=== PATIENT | female | born 1990 | race Caucasian/White ===

== ENCOUNTER 2017-06-22 06:38 | Inpatient (IN) | payer OTHER, BC ==
[2017-06-22] MEDS ORDERED: Sodium Chloride 0.9% 10 ML Syringe FLUSH PRN (19:04)
[2017-06-22] MEDS ORDERED: Nalbuphine 20 MG/1 ML Amp IVPUSH PRN (19:04)
[2017-06-22] MEDS ORDERED: Zolpidem 5 MG Tab PO PRN (19:04)
[2017-06-22] MEDS ORDERED: Acetaminophen 325 MG Tab PO PRN (19:04)
[2017-06-22] MEDS ORDERED: Ondansetron 4 MG/2 ML SDV IVPUSH PRN (19:04)
--- NOTE | 2017-06-22 19:12 | PCM.LDHP ---
L&D History of Present Illness - General Date of Service: 06/22/17 Admit Problem/Dx: Patient Status Order with Admit Dx/Problem 06/22/17 19:04 Patient Status [ADT] Routine Admission Diagnosis/Problem Admission Diagnosis/Problem Normal in third trimester Source of Information: Patient History Limitations: Reports: No Limitations - History of Present Illness Introduction:: Patient is a 26 y/o at 40 3/7 wks who presents for IOL. Doing well today. No significant contractions. No LOF. Notes good FM. No other issues. Denies headaches, vision changes, and RUQ pain. 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 Para: 0 LMP (Approximate): - Past Surgical History GI Surgical History: Reports: Hernia, Inguinal Social & Family History - Tobacco Use Smoking Status *Q: Former Smoker - Alcohol Use Alcohol Use History: No - Recreational Drug Use Recreational Drug Use: No H&P Review of Systems - Review of Systems: Review Of Systems: See Below General: Reports: No Symptoms Pulmonary: Reports: No Symptoms Cardiovascular: Reports: No Symptoms Gastrointestinal: Reports: No Symptoms Genitourinary: Reports: No Symptoms Musculoskeletal: Reports: No Symptoms Psychiatric: Reports: No Symptoms Neurological: Reports: No Symptoms L&D Exam - Exam Exam: See Below - OB Specific Contraction Intensity: Irritability Movement: Active Heart Tones: Present Heart Tones per Min: 125 Heart Rate (FHR) Variability: Moderate (6-25 bmp) Presentation: Vertex - Gannon Score Gannon Score Cervix Position: Midposition Gannon Score Consistency: Soft Gannon Score Effacement: 51-70% Gannon Score Dilation: 1-2 cm Gannon Score Infant's Station: -1 ,0 Gannon Score Total: 8 - Exam General: Alert, Oriented, Cooperative Lungs: Clear to Auscultation, Normal Respiratory Effort Cardiovascular: Regular Rate, Regular Rhythm GI/Abdominal Exam: Soft, Non-Tender Genitourinary: Normal external exam Extremities: Normal Inspection, Pedal Edema Skin: Warm, Dry, Intact Neurological: Hyperreflexia DTR: 3+: Patella (L), Patella (R) Psychiatric: Alert, Normal Affect, Normal Mood - Patient Data Result Diagrams: 06/22/17 19:36 06/22/17 19:36 - Problem List (1) Post-term , 40-42 weeks of gestation SNOMED Code(s): 33034993, 470053510 ICD Code: O48.0 - POST-TERM Status: Acute Current Visit: Yes (2) Rubella non-immune status, antepartum SNOMED Code(s): 293101032 ICD Code: O99.89 - OTH DISEASES AND CONDITIONS COMPL PREG/CHLDBRTH; Z28.3 - UNDERIMMUNIZATION STATUS Status: Acute Current Visit: Yes (3) Preeclampsia SNOMED Code(s): 376850545 ICD Code: O14.90 - UNSPECIFIED PRE-ECLAMPSIA, UNSPECIFIED TRIMESTER Status : Acute Current Visit: Yes Qualifiers: Trimester: third trimester Qualified Code(s): O14.93 - Unspecified pre- eclampsia, third trimester Problem List Initiated/Reviewed/Updated: Yes Assessment/Plan Comment:: 26 y/o at 40 3/7 wks who presents for IOL for dates, but with finding consistent with preeclampsia - not yet severe * CBC, T&S, AST, ALT, Creatinine, UA * Patient with upper limit mild range BP's and +3 reflexes. Did have 2 isolated severe range BP's. Discussed with patient and her . If becomes symptomatic or consistent severe pressure will need magnesium to treat. They understand this recommendation * Modified activity - bed rest with bathroom privileges * Buchanan bulb placed. Pitocin to be started. AROM when able * GBS negative, no need for antibiotics * Pain management per patient preference * Anticipate
[2017-06-22] MEDS ORDERED: Oxytocin/Lactated Ringers 10 UNIT/1,000 ML BAG IV SCH (19:15)
[2017-06-22] MEDS: Lactated Ringers 1,000 ML IV SCH (20:32)
[2017-06-22] MEDS: Oxytocin/Lactated Ringers 10 UNIT/1,000 ML BAG IV SCH (20:33)
--- NOTE | 2017-06-23 07:39 | PCM.PNLD ---
Labor Progress Note - VS & Meds Vital Signs: Last Vital Signs Temp 37.2 C 06/22/17 19:46 Pulse 97 06/22/17 19:46 Resp 16 06/22/17 19:46 BP 158/84 H 06/22/17 19:46 Pulse Ox 98 06/22/17 19:46 Active Medications: Current Medications Acetaminophen (Tylenol) 650 mg PO Q4H PRN PRN Reason: Pain (Mild 1-3) and fever Lactated Ringer's (Ringers, Lactated) 1,000 mls @ 40 mls/hr IV ASDIRECTED TRACEY Last Admin: 06/22/17 20:32 Dose: 40 mls/hr Oxytocin/Lactated Ringer's (Pitocin In Lr 10 Units/1,000 Ml) 10 unit in 1,000 mls @ 500 mls/hr IV .CONTINUOUS TRACEY Oxytocin/Lactated Ringer's (Pitocin In Lr 10 Units/1,000 Ml) 10 unit in 1,000 mls @ 12 mls/hr IV TITRATE TRACEY; 2 MUNITS/MIN PRN Reason: Protocol Last Titration: 06/23/17 06:53 Dose: 18 munits/min, 108 mls/hr Nalbuphine HCl (Nubain) 10 mg IVPUSH Q2H PRN PRN Reason: Pain (moderate 4-6) Ondansetron HCl (Zofran) 4 mg IVPUSH Q4H PRN PRN Reason: Nausea/Vomiting Sodium Chloride (Saline Flush) 10 ml FLUSH ASDIRECTED PRN PRN Reason: Keep Vein Open Zolpidem Tartrate (Ambien) 5 mg PO BEDTIME PRN PRN Reason: Insomnia - Uterine Contractions Uterine Monitoring Mode: External [place] Contraction Intensity: Mild Uterine Resting Tone: Soft - Monitoring Monitor Mode: External Ultrasound Heart Rate (FHR) Baseline: 130 Heart Rate (FHR) Variability: Moderate (6-25 bmp) Accelerations: Present, 15x15 Decelerations: None Strip Review: Category I - Vaginal Exam Dilation (cm): 4 Effacement (Percent): 70 Station: -1 Cervical Position: Midposition - Labor Progress (Free Text) Labor Progress: Patient's BP's improved overnight. Now mostly upper normal to low mild range. Magnesium not started overnight. Patient on 18 of pitocin. AROM performed with release of clear fluid. Continue present management
--- NOTE | 2017-06-23 09:03 | PCM.PREANE ---
Preanesthetic Assessment - Anesthesia/Transfusion/Family Hx Anesthesia History: Prior Anesthesia Without Reaction Family History of Anesthesia Reaction: No Transfusion History: No Prior Transfusion(s) Intubation History: Unknown - Review of Systems General: No Symptoms Pulmonary: No Symptoms Cardiovascular: No Symptoms (PIH within past three days), Lightheadedness ( postural hypotension) Gastrointestinal: No Symptoms (GERD), Diarrhea Neurological: No Symptoms (CTS with and swollen feet with ) Other: Reports: Easy Bleeding, Sinus Problem ( induced congestion) - Physical Assessment NPO Status Date: 06/23/17 NPO Status Time: 09:00 Pulse: 97 O2 Sat by Pulse Oximetry: 98 Respiratory Rate: 16 Blood Pressure: 158/84 Temperature: 37.2 C Vital Signs: Last Vital Signs Temp 37.2 C 06/22/17 19:46 Pulse 97 06/22/17 19:46 Resp 16 06/22/17 19:46 BP 158/84 H 06/22/17 19:46 Pulse Ox 98 06/22/17 19:46 Height: 1.57 m Weight: 92.805 kg ASA Class: 2 Mental Status: Alert & Oriented x3 Airway Class: Mallampati = 3 Dentition: Reports: Normal Dentition, Caries Thyro-Mental Finger Breadths: 3 Mouth Opening Finger Breadths: 3 ROM/Head Extension: Full Lungs: Clear to Auscultation, Normal Respiratory Effort Cardiovascular: Regular Rate, Regular Rhythm, No Murmurs - Lab Values: Laboratory Last Values WBC 12.45 K/mm3 (3.98-10.04) H 06/22/17 19:36 RBC 4.20 M/mm3 (3.98-5.22) 06/22/17 19:36 Hgb 11.0 gm/L (11.2-15.7) L 06/22/17 19:36 Hct 33.2 % (34.1-44.9) L 06/22/17 19:36 MCV 79.0 fl (79.4-94.8) L 06/22/17 19:36 MCH 26.2 pg (25.6-32.2) 06/22/17 19:36 MCHC 33.1 g/dl (32.2-35.5) 06/22/17 19:36 RDW Std Deviation 44.0 fL (36.4-46.3) 06/22/17 19:36 Plt Count 218 K/mm3 (182-369) 06/22/17 19:36 MPV 11.1 fl (9.4-12.3) 06/22/17 19:36 Creatinine 0.6 mg/dL (0.55-1.02) 06/22/17 19:36 Est Cr Clr Drug Dosing TNP 06/22/17 19:36 Estimated GFR (MDRD) > 60 mL/min (>60) 06/22/17 19:36 AST 18 U/L (15-37) 06/22/17 19:36 ALT 19 U/L (14-59) 06/22/17 19:36 Urine Color Light yellow (Yellow) 06/22/17 20:40 Urine Appearance Clear (Clear) 06/22/17 20:40 Urine pH 7.0 (5.0-8.0) 06/22/17 20:40 Ur Specific [place] 1.015 (1.005-1.030) 06/22/17 20:40 Urine Protein Negative (Negative) 06/22/17 20:40 Urine Glucose (UA) Negative (Negative) 06/22/17 20:40 Urine Ketones Negative (Negative) 06/22/17 20:40 Urine Occult Blood 1+ (Negative) H 06/22/17 20:40 Urine Nitrite Negative (Negative) 06/22/17 20:40 Urine Bilirubin Negative (Negative) 06/22/17 20:40 Urine Urobilinogen 0.2 (0.2-1.0) 06/22/17 20:40 Ur Leukocyte Esterase Trace (Negative) H 06/22/17 20:40 Blood Type O POSITIVE 06/22/17 19:36 Gel Antibody Screen Negative 06/22/17 19:36 Above labs reviewed and noted. 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: - Past Surgical History GI Surgical History: Reports: Hernia, Inguinal - SUBSTANCE USE Smoking Status *Q: Former Smoker Tobacco Use Within Last Twelve Months: Cigarettes Second Hand Smoke Exposure: No Recreational Drug Use History: No - HOME MEDS Home Medications: Home Meds Vits #93/Iron Fum/FA [ Formula Tablet] 1 tab PO DAILY 06/22/17 [History] - CURRENT (IN HOUSE) MEDS Current Meds: Current Medications Acetaminophen (Tylenol) 650 mg PO Q4H PRN PRN Reason: Pain (Mild 1-3) and fever Lactated Ringer's (Ringers, Lactated) 1,000 mls @ 40 mls/hr IV ASDIRECTED TRACEY Last Admin: 06/22/17 20:32 Dose: 40 mls/hr Oxytocin/Lactated Ringer's (Pitocin In Lr 10 Units/1,000 Ml) 10 unit in 1,000 mls @ 500 mls/hr IV .CONTINUOUS TRACEY Oxytocin/Lactated Ringer's (Pitocin In Lr 10 Units/1,000 Ml) 10 unit in 1,000 mls @ 12 mls/hr IV TITRATE TRACEY; 2 MUNITS/MIN PRN Reason: Protocol Last Titration: 06/23/17 06:53 Dose: 18 munits/min, 108 mls/hr Nalbuphine HCl (Nubain) 10 mg IVPUSH Q2H PRN PRN Reason: Pain (moderate 4-6) Ondansetron HCl (Zofran) 4 mg IVPUSH Q4H PRN PRN Reason: Nausea/Vomiting Sodium Chloride (Saline Flush) 10 ml FLUSH ASDIRECTED PRN PRN Reason: Keep Vein Open Zolpidem Tartrate (Ambien) 5 mg PO BEDTIME PRN PRN Reason: Insomnia
[2017-06-23] MEDS ORDERED: fentaNYL 100 MCG/2 ML SDV EPIDUR PRN (09:09)
[2017-06-23] MEDS ORDERED: Ondansetron 4 MG/2 ML SDV IVPUSH PRN (09:09)
[2017-06-23] MEDS ORDERED: ePHEDrine 50 MG/ML SDV IVPUSH PRN (09:09)
[2017-06-23] MEDS: Oxytocin/Lactated Ringers 10 UNIT/1,000 ML BAG IV SCH (10:07)
--- NOTE | 2017-06-23 12:00 | PCM.PNLD ---
Labor Progress Note - VS & Meds Vital Signs: Last Vital Signs Temp 37.2 C 06/23/17 09:11 Pulse 97 06/23/17 09:11 Resp 16 06/23/17 09:11 BP 158/84 H 06/23/17 09:11 Pulse Ox 98 06/23/17 09:11 Active Medications: Current Medications Acetaminophen (Tylenol) 650 mg PO Q4H PRN PRN Reason: Pain (Mild 1-3) and fever Ephedrine Sulfate (Ephedrine Sulfate) 5 mg IVPUSH ASDIRECTED PRN PRN Reason: Hypotension Fentanyl (Sublimaze) 100 mcg EPIDUR Q3H PRN PRN Reason: Pain Fentanyl/Bupivacaine HCl (Fentanyl/Bupivacaine/Ns 2 Mcg-0.125% 100 Ml) 100 ml EPIDUR ASDIRECTED TRACEY Lactated Ringer's (Ringers, Lactated) 1,000 mls @ 40 mls/hr IV ASDIRECTED TRACEY Last Admin: 06/22/17 20:32 Dose: 40 mls/hr Oxytocin/Lactated Ringer's (Pitocin In Lr 10 Units/1,000 Ml) 10 unit in 1,000 mls @ 500 mls/hr IV .CONTINUOUS TRACEY Oxytocin/Lactated Ringer's (Pitocin In Lr 10 Units/1,000 Ml) 10 unit in 1,000 mls @ 12 mls/hr IV TITRATE TRACEY; 2 MUNITS/MIN PRN Reason: Protocol Last Admin: 06/23/17 10:07 Dose: 20 munits/min, 120 mls/hr Nalbuphine HCl (Nubain) 10 mg IVPUSH Q2H PRN PRN Reason: Pain (moderate 4-6) Ondansetron HCl (Zofran) 4 mg IVPUSH Q4H PRN PRN Reason: Nausea/Vomiting Ondansetron HCl (Zofran) 4 mg IVPUSH ONETIME PRN PRN Reason: Nausea/Vomiting Sodium Chloride (Saline Flush) 10 ml FLUSH ASDIRECTED PRN PRN Reason: Keep Vein Open Zolpidem Tartrate (Ambien) 5 mg PO BEDTIME PRN PRN Reason: Insomnia - Uterine Contractions Uterine Monitoring Mode: External [place] Contraction Intensity: Moderate Uterine Resting Tone: Soft - Monitoring Monitor Mode: External Ultrasound Heart Rate (FHR) Baseline: 145 Heart Rate (FHR) Variability: Moderate (6-25 bmp) Accelerations: Present, 15x15 Decelerations: None Strip Review: Category I - Vaginal Exam Dilation (cm): 5 Effacement (Percent): 80 Station: 0 Cervical Position: Midposition - Labor Progress (Free Text) Labor Progress: Doing well. On 20 of pitocin. In last 3 hours starting to get more uncomfortable. Has made a small amount of change. Will reassess in another 2 hours. if no change by that time will place IUPC and increase pitocin towards 30.
--- NOTE | 2017-06-23 14:15 | PCM.PNLD ---
Labor Progress Note - VS & Meds Vital Signs: Last Vital Signs Temp 37.2 C 06/23/17 09:11 Pulse 97 06/23/17 09:11 Resp 16 06/23/17 09:11 BP 158/84 H 06/23/17 09:11 Pulse Ox 98 06/23/17 09:11 Active Medications: Current Medications Acetaminophen (Tylenol) 650 mg PO Q4H PRN PRN Reason: Pain (Mild 1-3) and fever Ephedrine Sulfate (Ephedrine Sulfate) 5 mg IVPUSH ASDIRECTED PRN PRN Reason: Hypotension Fentanyl (Sublimaze) 100 mcg EPIDUR Q3H PRN PRN Reason: Pain Fentanyl/Bupivacaine HCl (Fentanyl/Bupivacaine/Ns 2 Mcg-0.125% 100 Ml) 100 ml EPIDUR ASDIRECTED TRACEY Lactated Ringer's (Ringers, Lactated) 1,000 mls @ 40 mls/hr IV ASDIRECTED TRACEY Last Admin: 06/22/17 20:32 Dose: 40 mls/hr Oxytocin/Lactated Ringer's (Pitocin In Lr 10 Units/1,000 Ml) 10 unit in 1,000 mls @ 500 mls/hr IV .CONTINUOUS TRACEY Oxytocin/Lactated Ringer's (Pitocin In Lr 10 Units/1,000 Ml) 10 unit in 1,000 mls @ 12 mls/hr IV TITRATE TRACEY; 2 MUNITS/MIN PRN Reason: Protocol Last Admin: 06/23/17 10:07 Dose: 20 munits/min, 120 mls/hr Nalbuphine HCl (Nubain) 10 mg IVPUSH Q2H PRN PRN Reason: Pain (moderate 4-6) Ondansetron HCl (Zofran) 4 mg IVPUSH Q4H PRN PRN Reason: Nausea/Vomiting Ondansetron HCl (Zofran) 4 mg IVPUSH ONETIME PRN PRN Reason: Nausea/Vomiting Sodium Chloride (Saline Flush) 10 ml FLUSH ASDIRECTED PRN PRN Reason: Keep Vein Open Zolpidem Tartrate (Ambien) 5 mg PO BEDTIME PRN PRN Reason: Insomnia - Uterine Contractions Uterine Monitoring Mode: External [place] Contraction Intensity: Moderate to Strong Uterine Resting Tone: Soft - Monitoring Monitor Mode: External Ultrasound Heart Rate (FHR) Baseline: 150 Heart Rate (FHR) Variability: Moderate (6-25 bmp) Accelerations: Present, 15x15 Decelerations: None Strip Review: Category I - Vaginal Exam Dilation (cm): 5-6 Effacement (Percent): 80 Station: 0 Cervical Position: Anterior - Labor Progress (Free Text) Labor Progress: Patient continues on 20 of pitocin. Rates contractions as really strong and bothersome. Since last check 2 hrs ago is now more like a 5-6 and cervix more anterior. Rest of exam remains the same. Will repeat assessment in another 2 hours to see if IUPC is needed. BP's are mild range, now more consistently 140' s/90's with few 150's. No severe range values. Continue without mangesium at this time.
[2017-06-23] MEDS: Lactated Ringers 1,000 ML IV SCH ×3 (15:11→18:13)
--- NOTE | 2017-06-23 16:02 | PCM.PNLD ---
Labor Progress Note - VS & Meds Vital Signs: Last Vital Signs Temp 37.2 C 06/23/17 09:11 Pulse 97 06/23/17 09:11 Resp 16 06/23/17 09:11 BP 158/84 H 06/23/17 09:11 Pulse Ox 98 06/23/17 09:11 Active Medications: Current Medications Acetaminophen (Tylenol) 650 mg PO Q4H PRN PRN Reason: Pain (Mild 1-3) and fever Ephedrine Sulfate (Ephedrine Sulfate) 5 mg IVPUSH ASDIRECTED PRN PRN Reason: Hypotension Fentanyl (Sublimaze) 100 mcg EPIDUR Q3H PRN PRN Reason: Pain Fentanyl/Bupivacaine HCl (Fentanyl/Bupivacaine/Ns 2 Mcg-0.125% 100 Ml) 100 ml EPIDUR ASDIRECTED TRACEY Lactated Ringer's (Ringers, Lactated) 1,000 mls @ 40 mls/hr IV ASDIRECTED TRACEY Last Admin: 06/22/17 20:32 Dose: 40 mls/hr Oxytocin/Lactated Ringer's (Pitocin In Lr 10 Units/1,000 Ml) 10 unit in 1,000 mls @ 500 mls/hr IV .CONTINUOUS TRACEY Oxytocin/Lactated Ringer's (Pitocin In Lr 10 Units/1,000 Ml) 10 unit in 1,000 mls @ 12 mls/hr IV TITRATE TRACEY; 2 MUNITS/MIN PRN Reason: Protocol Last Admin: 06/23/17 10:07 Dose: 20 munits/min, 120 mls/hr Nalbuphine HCl (Nubain) 10 mg IVPUSH Q2H PRN PRN Reason: Pain (moderate 4-6) Ondansetron HCl (Zofran) 4 mg IVPUSH Q4H PRN PRN Reason: Nausea/Vomiting Ondansetron HCl (Zofran) 4 mg IVPUSH ONETIME PRN PRN Reason: Nausea/Vomiting Sodium Chloride (Saline Flush) 10 ml FLUSH ASDIRECTED PRN PRN Reason: Keep Vein Open Zolpidem Tartrate (Ambien) 5 mg PO BEDTIME PRN PRN Reason: Insomnia - Uterine Contractions Uterine Monitoring Mode: External [place] Contraction Intensity: Moderate to Strong Uterine Resting Tone: Soft - Monitoring Monitor Mode: External Ultrasound Heart Rate (FHR) Baseline: 150 Heart Rate (FHR) Variability: Moderate (6-25 bmp) Accelerations: Present, 15x15 Decelerations: None Strip Review: Category I - Vaginal Exam Dilation (cm): 6 Effacement (Percent): 90 Station: 0 Cervical Position: Anterior - Labor Progress (Free Text) Labor Progress: Doing well. About to get her epidural. Will sign out to Dr. Patel.
[2017-06-23] MEDS: Bupivacaine/fentaNYL/NS 100 ML Bag EPIDUR SCH ×2 (16:03→22:11)
[2017-06-24] MEDS ORDERED: Gentamicin 40 MG/ML 2 ML Vial ONE (04:14)
[2017-06-24] MEDS ORDERED: Ampicillin 2 GM in Sodium Chloride 0.9% 100 ML IV SCH ×2 (04:15→04:30)
--- NOTE | 2017-06-24 04:19 | PCM.PNLD ---
Labor Progress Note - VS & Meds Vital Signs: Last Vital Signs Temp 37.2 C 06/23/17 09:11 Pulse 97 06/23/17 09:11 Resp 16 06/23/17 09:11 BP 158/84 H 06/23/17 09:11 Pulse Ox 98 06/23/17 09:11 Active Medications: Current Medications Acetaminophen (Tylenol) 650 mg PO Q4H PRN PRN Reason: Pain (Mild 1-3) and fever Ephedrine Sulfate (Ephedrine Sulfate) 5 mg IVPUSH ASDIRECTED PRN PRN Reason: Hypotension Fentanyl (Sublimaze) 100 mcg EPIDUR Q3H PRN PRN Reason: Pain Last Admin: 06/23/17 16:03 Dose: 100 mcg Fentanyl/Bupivacaine HCl (Fentanyl/Bupivacaine/Ns 2 Mcg-0.125% 100 Ml) 100 ml EPIDUR ASDIRECTED TRACEY Last Admin: 06/23/17 22:11 Dose: 100 ml Lactated Ringer's (Ringers, Lactated) 1,000 mls @ 40 mls/hr IV ASDIRECTED TRACEY Last Admin: 06/23/17 18:13 Dose: 40 mls/hr Oxytocin/Lactated Ringer's (Pitocin In Lr 10 Units/1,000 Ml) 10 unit in 1,000 mls @ 500 mls/hr IV .CONTINUOUS TRACEY Oxytocin/Lactated Ringer's (Pitocin In Lr 10 Units/1,000 Ml) 10 unit in 1,000 mls @ 12 mls/hr IV TITRATE TRACEY; 2 MUNITS/MIN PRN Reason: Protocol Last Admin: 06/23/17 10:07 Dose: 20 munits/min, 120 mls/hr Oxytocin 20 unit/ Lactated (Ringer's) 1,002 mls @ 60.12 mls/hr IV TITRATE TRACEY; 20 MUNITS/MIN PRN Reason: Protocol Last Titration: 06/23/17 23:39 Dose: 28 munits/min, 84.16 mls/hr Ampicillin Sodium 2 gm/ Sodium (Chloride) 100 mls @ 200 mls/hr IV Q6H TRACEY Gentamicin Sulfate 450 mg/ (Sodium Chloride) 111.25 mls @ 200 mls/hr IV ONETIME ONE Stop: 06/24/17 04:39 Nalbuphine HCl (Nubain) 10 mg IVPUSH Q2H PRN PRN Reason: Pain (moderate 4-6) Ondansetron HCl (Zofran) 4 mg IVPUSH Q4H PRN PRN Reason: Nausea/Vomiting Ondansetron HCl (Zofran) 4 mg IVPUSH ONETIME PRN PRN Reason: Nausea/Vomiting Sodium Chloride (Saline Flush) 10 ml FLUSH ASDIRECTED PRN PRN Reason: Keep Vein Open Zolpidem Tartrate (Ambien) 5 mg PO BEDTIME PRN PRN Reason: Insomnia - Uterine Contractions Uterine Monitoring Mode: External [place] Contraction Intensity: Moderate Uterine Resting Tone: Soft - Monitoring Monitor Mode: External Ultrasound Heart Rate (FHR) Baseline: 150 Heart Rate (FHR) Variability: Moderate (6-25 bmp) Accelerations: Present, 15x15 Decelerations: None Strip Review: Category I - Vaginal Exam Dilation (cm): 4 Effacement (Percent): 90 Station: 0 Cervical Position: Anterior - Labor Progress (Free Text) Labor Progress: Minimal progress but only recently active labor. Meconium staining. IUPC placed. Will assess adequacy of contractions and increase pitocin (significant swelling) so increase concentration and decrease rate - may go as high as 30.
--- NOTE | 2017-06-24 04:21 | PCM.PNLD ---
Labor Progress Note - VS & Meds Vital Signs: Last Vital Signs Temp 37.2 C 06/23/17 09:11 Pulse 97 06/23/17 09:11 Resp 16 06/23/17 09:11 BP 158/84 H 06/23/17 09:11 Pulse Ox 98 06/23/17 09:11 Active Medications: Current Medications Acetaminophen (Tylenol) 650 mg PO Q4H PRN PRN Reason: Pain (Mild 1-3) and fever Ephedrine Sulfate (Ephedrine Sulfate) 5 mg IVPUSH ASDIRECTED PRN PRN Reason: Hypotension Fentanyl (Sublimaze) 100 mcg EPIDUR Q3H PRN PRN Reason: Pain Last Admin: 06/23/17 16:03 Dose: 100 mcg Fentanyl/Bupivacaine HCl (Fentanyl/Bupivacaine/Ns 2 Mcg-0.125% 100 Ml) 100 ml EPIDUR ASDIRECTED TRACEY Last Admin: 06/23/17 22:11 Dose: 100 ml Lactated Ringer's (Ringers, Lactated) 1,000 mls @ 40 mls/hr IV ASDIRECTED TRACEY Last Admin: 06/23/17 18:13 Dose: 40 mls/hr Oxytocin/Lactated Ringer's (Pitocin In Lr 10 Units/1,000 Ml) 10 unit in 1,000 mls @ 500 mls/hr IV .CONTINUOUS TRACEY Oxytocin/Lactated Ringer's (Pitocin In Lr 10 Units/1,000 Ml) 10 unit in 1,000 mls @ 12 mls/hr IV TITRATE TRACEY; 2 MUNITS/MIN PRN Reason: Protocol Last Admin: 06/23/17 10:07 Dose: 20 munits/min, 120 mls/hr Oxytocin 20 unit/ Lactated (Ringer's) 1,002 mls @ 60.12 mls/hr IV TITRATE TRACEY; 20 MUNITS/MIN PRN Reason: Protocol Last Titration: 06/23/17 23:39 Dose: 28 munits/min, 84.16 mls/hr Gentamicin Sulfate 450 mg/ (Sodium Chloride) 111.25 mls @ 200 mls/hr IV ONETIME ONE Stop: 06/24/17 04:39 Ampicillin Sodium 2 gm/ Sodium (Chloride) 100 mls @ 200 mls/hr IV Q6H TRACEY Nalbuphine HCl (Nubain) 10 mg IVPUSH Q2H PRN PRN Reason: Pain (moderate 4-6) Ondansetron HCl (Zofran) 4 mg IVPUSH Q4H PRN PRN Reason: Nausea/Vomiting Ondansetron HCl (Zofran) 4 mg IVPUSH ONETIME PRN PRN Reason: Nausea/Vomiting Sodium Chloride (Saline Flush) 10 ml FLUSH ASDIRECTED PRN PRN Reason: Keep Vein Open Zolpidem Tartrate (Ambien) 5 mg PO BEDTIME PRN PRN Reason: Insomnia - Uterine Contractions Uterine Monitoring Mode: External [place] Contraction Intensity: Moderate Uterine Resting Tone: Soft - Monitoring Monitor Mode: External Ultrasound Heart Rate (FHR) Baseline: 150 Heart Rate (FHR) Variability: Moderate (6-25 bmp) Accelerations: Present, 15x15 Decelerations: None Strip Review: Category I - Vaginal Exam Dilation (cm): 10 Effacement (Percent): 100 Station: 2 Cervical Position: Anterior - Labor Progress (Free Text) Labor Progress: Pushing for approximately one hour. At 0354 elevated temp to 102. No tachycardia. Will start ampicillin and gentamicin. Doing well with pushing. Adequate progress.
[2017-06-24] MEDS ORDERED: Sodium Chloride 0.9% 100 ML ONE (04:22)
[2017-06-24] MEDS: Lactated Ringers 1,000 ML IV SCH (04:31)
--- NOTE | 2017-06-24 05:05 | PCM.SN ---
- Free Text/Narrative Note: Patient has been pushing reasonably effectively since 3:15am. Getting increasingly exhausted and requesting . O: Tmax 102.1, FHT: 175 [place]: q 2-3 min Good descent of head since my last exam, significant labial swelling A: adequate progress with increasing maternal exhaustion. P: Discussed that vacuum is an option if she would like at this time given tachycardia, chorioamnionitis, maternal exhaustion. She and her refer me to their plan (which I had not previously had the opportunity to review as it was not scanned into her clinic record nor was it available on her labor and delivery chart, they had a copy in the room which he hands me now) Her plan does state she does not want forceps or vacuum and would rather have a . I do not think we are at the point of necessity at this time and still think with continued effective pushing she can potentially deliver vaginally. Will reassess shortly.
[2017-06-24] MEDS: Bupivacaine/fentaNYL/NS 100 ML Bag EPIDUR SCH (05:20)
[2017-06-24] MEDS ORDERED: Misoprostol 200 MCG Tab ONE (06:49)
--- NOTE | 2017-06-24 07:25 | PCM.DEL ---
L & D Note - General Info Date of Service: 06/24/17 Mother's Due Date: 06/19/17 - Delivery Note Labor: Induced by ARM, Induced by Oxytocin Cervical Ripening Method: Balloon Device Delivery Outcome: Livebirth Infant Delivery Method: Spontaneous Vaginal Delivery Infant Delivery Mode: Spontaneous Presentation: Vertex Nuchal Cord: None Anesthesia Type: Epidural Episiotomy Type: None Laceration: None Suture type: Vicryl Suture size: 2-0 Placenta: Manual Removal Cord: 3 Vessels Estimated Blood Loss: 600 Resuscitation Needed: Yes Provider: Rayray Butler Score 1 min: 6 Score 5 min: 9 Post Delivery Events: Shoulder Dystocia (2 minutes. Suprapubic pressure. ZACHARY. Requested to have code called. Attempt at rotation of posterior shoulder. Attempt at movement of anterior shoulder. Reached in and delivered anterior arm and eventual delivery of a limp infant with very foul smelling amniotic fluid handed off to Dr. Butler.) - Patient Data Vitals - Most Recent: Last Vital Signs Temp 38.9 C H 06/24/17 04:21 Pulse 97 06/23/17 09:11 Resp 16 06/23/17 09:11 BP 158/84 H 06/23/17 09:11 Pulse Ox 98 06/23/17 09:11 Weight - Most Recent: 92.805 kg Lab Results Last 24 Hours: Laboratory Results - last 24 hr 06/24/17 Range/Units 06:51 Cord VBG pH 7.36 (7.28-7.40) Cord VBG pCO2 34.2 (32.8-38.6) Cord VBG pO2 34 H (28-32) Cord VBG HCO3 18.9 L (19-24) Cord VBG Base Excess -4.9 L (-4.4-0.4) Med Orders - Current: Current Medications Acetaminophen (Tylenol) 650 mg PO Q4H PRN PRN Reason: Pain (Mild 1-3) and fever Last Admin: 06/24/17 04:21 Dose: 650 mg Ephedrine Sulfate (Ephedrine Sulfate) 5 mg IVPUSH ASDIRECTED PRN PRN Reason: Hypotension Fentanyl (Sublimaze) 100 mcg EPIDUR Q3H PRN PRN Reason: Pain Last Admin: 06/23/17 16:03 Dose: 100 mcg Fentanyl/Bupivacaine HCl (Fentanyl/Bupivacaine/Ns 2 Mcg-0.125% 100 Ml) 100 ml EPIDUR ASDIRECTED TRACEY Last Admin: 06/24/17 05:20 Dose: 100 ml Lactated Ringer's (Ringers, Lactated) 1,000 mls @ 40 mls/hr IV ASDIRECTED TRACEY Last Admin: 06/24/17 04:31 Dose: 40 mls/hr Oxytocin/Lactated Ringer's (Pitocin In Lr 10 Units/1,000 Ml) 10 unit in 1,000 mls @ 500 mls/hr IV .CONTINUOUS TRACEY Oxytocin/Lactated Ringer's (Pitocin In Lr 10 Units/1,000 Ml) 10 unit in 1,000 mls @ 12 mls/hr IV TITRATE TRACEY; 2 MUNITS/MIN PRN Reason: Protocol Last Admin: 06/23/17 10:07 Dose: 20 munits/min, 120 mls/hr Oxytocin 20 unit/ Lactated (Ringer's) 1,002 mls @ 60.12 mls/hr IV TITRATE TRACEY; 20 MUNITS/MIN PRN Reason: Protocol Last Titration: 06/23/17 23:39 Dose: 28 munits/min, 84.16 mls/hr Ampicillin Sodium 2 gm/ Sodium (Chloride) 100 mls @ 200 mls/hr IV Q6H TRACEY Last Admin: 06/24/17 04:24 Dose: 200 mls/hr Nalbuphine HCl (Nubain) 10 mg IVPUSH Q2H PRN PRN Reason: Pain (moderate 4-6) Ondansetron HCl (Zofran) 4 mg IVPUSH Q4H PRN PRN Reason: Nausea/Vomiting Ondansetron HCl (Zofran) 4 mg IVPUSH ONETIME PRN PRN Reason: Nausea/Vomiting Sodium Chloride (Saline Flush) 10 ml FLUSH ASDIRECTED PRN PRN Reason: Keep Vein Open Zolpidem Tartrate (Ambien) 5 mg PO BEDTIME PRN PRN Reason: Insomnia Discontinued Medications Gentamicin Sulfate (Gentamicin) Confirm Administered Dose 480 mg .ROUTE .STK- MED ONE Stop: 06/24/17 04:15 Gentamicin Sulfate 450 mg/ (Sodium Chloride) 111.25 mls @ 200 mls/hr IV ONETIME ONE Stop: 06/24/17 04:39 Last Admin: 06/24/17 04:54 Dose: 200 mls/hr Sodium Chloride (Normal Saline) Confirm Administered Dose 100 mls @ as directed .ROUTE .STK-MED ONE Stop: 06/24/17 04:23 Misoprostol (Cytotec) Confirm Administered Dose 600 mcg .ROUTE .STK-MED ONE Stop: 06/24/17 06:50 - Problem List Review Problem List Initiated/Reviewed/Updated: Yes - My Orders Last 24 Hours: My Active Orders 06/23/17 17:45 Oxytocin [Pitocin] 20 unit Lactated Ringers [Ringers, Lactated] 1,000 ml IV TITRATE 06/24/17 04:30 Ampicillin 2 gm Sodium Chloride 0.9% [Normal Saline] 100 ml IV Q6H 06/24/17 07:10 Patient Status Manage Transfer [TRANSFER] Routine - Plan Plan:: 26 y/o at 40 3/7 wks who presents for IOL for dates, but with finding consistent with preeclampsia - not yet severe * CBC, T&S, AST, ALT, Creatinine, UA * Patient with upper limit mild range BP's and +3 reflexes. Did have 2 isolated severe range BP's. Discussed with patient and her . If becomes symptomatic or consistent severe pressure will need magnesium to treat. They understand this recommendation * Modified activity - bed rest with bathroom privileges * Buchanan bulb placed. Pitocin to be started. AROM when able * GBS negative, no need for antibiotics * Pain management per patient preference * Anticipate
[2017-06-24] MEDS ORDERED: Misoprostol 200 MCG Tab PO PRN (08:42)
[2017-06-24] MEDS ORDERED: Witch Hazel Medicated Pads 100/Jar TOP PRN (08:42)
[2017-06-24] MEDS ORDERED: Benzocaine/Menthol 20%-0.5% Spray 56 GM Canister TOP PRN (08:42)
[2017-06-24] MEDS ORDERED: Lanolin 100% Cream 7 GM Tube TOP PRN (08:42)
--- NOTE | 2017-06-24 13:17 | PCM48HPAN ---
Post Anesthesia Note - EVALUATION WITHIN 48HRS OF ANESTHETIC Vital Signs in Normal Range: Yes Patient Participated in Evaluation: Yes Respiratory Function Stable: Yes Airway Patent: Yes Cardiovascular Function Stable: Yes Hydration Status Stable: Yes Pain Control Satisfactory: Yes Nausea and Vomiting Control Satisfactory: Yes Mental Status Recovered: Yes
[2017-06-24] MEDS ORDERED: Bupivacaine 0.25% 10 ML SDV ONE (22:22)
[2017-06-24] MEDS: Ibuprofen 600 MG Tab PO PRN (23:34)
--- NOTE | 2017-06-25 04:47 | PCM.PNPP ---
- General Info Date of Service: 06/25/17 Functional Status: Reports: Pain Controlled, Tolerating Diet, Ambulating, Urinating - Review of Systems General: Reports: No Symptoms HEENT: Reports: No Symptoms Pulmonary: Reports: No Symptoms Cardiovascular: Reports: No Symptoms Gastrointestinal: Reports: No Symptoms Genitourinary: Reports: No Symptoms Musculoskeletal: Reports: No Symptoms Skin: Reports: No Symptoms Neurological: Reports: No Symptoms Psychiatric: Reports: No Symptoms - General Info Date of Service: 06/25/17 - Patient Data Vital Signs - Most Recent: Last Vital Signs Temp 36.3 C 06/25/17 01:01 Pulse 118 H 06/25/17 01:01 Resp 16 06/25/17 01:01 BP 129/75 06/25/17 01:01 Pulse Ox 96 06/25/17 01:01 Weight - Most Recent: 92.805 kg I&O - Last 24 Hours: Intake & Output 06/24/17 06/24/17 06/25/17 14:59 22:59 06:59 Intake Total 0 Balance 0 Lab Results - Last 24 Hours: Laboratory Results - last 24 hr 06/24/17 Range/Units 06:51 Cord VBG pH 7.36 (7.28-7.40) Cord VBG pCO2 34.2 (32.8-38.6) Cord VBG pO2 34 H (28-32) Cord VBG HCO3 18.9 L (19-24) Cord VBG Base Excess -4.9 L (-4.4-0.4) Med Orders - Current: Current Medications Benzocaine/Menthol (Dermoplast Pain Relief [place]) 0 gm TOP ASDIRECTED PRN PRN Reason: Perineal Comfort Measure Docusate Sodium (Colace) 100 mg PO BID PRN PRN Reason: Constipation Emollient Ointment (Lansinoh Hpa) 0 gm TOP ASDIRECTED PRN PRN Reason: Sore Nipples Ibuprofen (Motrin) 600 mg PO Q6H PRN PRN Reason: Mild pain or fever Last Admin: 06/24/17 23:34 Dose: 600 mg Misoprostol (Cytotec) 600 mcg PO ONETIME PRN PRN Reason: excessive vaginal bleeding Last Admin: 06/24/17 06:52 Dose: 600 mcg Witch Sujey (Tucks) 1 pad TOP ASDIRECTED PRN PRN Reason: Hemorrhoid pain Discontinued Medications Acetaminophen (Tylenol) 650 mg PO Q4H PRN PRN Reason: Pain (Mild 1-3) and fever Last Admin: 06/24/17 04:21 Dose: 650 mg Ephedrine Sulfate (Ephedrine Sulfate) 5 mg IVPUSH ASDIRECTED PRN PRN Reason: Hypotension Fentanyl (Sublimaze) 100 mcg EPIDUR Q3H PRN PRN Reason: Pain Last Admin: 06/23/17 16:03 Dose: 100 mcg Fentanyl/Bupivacaine HCl (Fentanyl/Bupivacaine/Ns 2 Mcg-0.125% 100 Ml) 100 ml EPIDUR ASDIRECTED TRACEY Last Admin: 06/24/17 05:20 Dose: 100 ml Gentamicin Sulfate (Gentamicin) Confirm Administered Dose 480 mg .ROUTE .[facility]- MED ONE Stop: 06/24/17 04:15 Last Admin: 06/24/17 08:27 Dose: Not Given Lactated Ringer's (Ringers, Lactated) 1,000 mls @ 40 mls/hr IV ASDIRECTED TRACEY Last Admin: 06/24/17 04:31 Dose: 40 mls/hr Oxytocin/Lactated Ringer's (Pitocin In Lr 10 Units/1,000 Ml) 10 unit in 1,000 mls @ 500 mls/hr IV .CONTINUOUS TRACEY Oxytocin/Lactated Ringer's (Pitocin In Lr 10 Units/1,000 Ml) 10 unit in 1,000 mls @ 12 mls/hr IV TITRATE TRACEY; 2 MUNITS/MIN PRN Reason: Protocol Last Admin: 06/23/17 10:07 Dose: 20 munits/min, 120 mls/hr Oxytocin 20 unit/ Lactated (Ringer's) 1,002 mls @ 60.12 mls/hr IV TITRATE TRACEY; 20 MUNITS/MIN PRN Reason: Protocol Last Titration: 06/23/17 23:39 Dose: 28 munits/min, 84.16 mls/hr Gentamicin Sulfate 450 mg/ (Sodium Chloride) 111.25 mls @ 200 mls/hr IV ONETIME ONE Stop: 06/24/17 04:39 Last Admin: 06/24/17 04:54 Dose: 200 mls/hr Ampicillin Sodium 2 gm/ Sodium (Chloride) 100 mls @ 200 mls/hr IV Q6H TRACEY Last Admin: 06/24/17 04:24 Dose: 200 mls/hr Sodium Chloride (Normal Saline) Confirm Administered Dose 100 mls @ as directed .ROUTE .STK-MED ONE Stop: 06/24/17 04:23 Last Admin: 06/24/17 08:27 Dose: Not Given Misoprostol (Cytotec) Confirm Administered Dose 600 mcg .ROUTE .STK-MED ONE Stop: 06/24/17 06:50 Last Admin: 06/24/17 09:09 Dose: Not Given Nalbuphine HCl (Nubain) 10 mg IVPUSH Q2H PRN PRN Reason: Pain (moderate 4-6) Ondansetron HCl (Zofran) 4 mg IVPUSH Q4H PRN PRN Reason: Nausea/Vomiting Ondansetron HCl (Zofran) 4 mg IVPUSH ONETIME PRN PRN Reason: Nausea/Vomiting Sodium Chloride (Saline Flush) 10 ml FLUSH ASDIRECTED PRN PRN Reason: Keep Vein Open Zolpidem Tartrate (Ambien) 5 mg PO BEDTIME PRN PRN Reason: Insomnia - Interaction Infant Disposition, : [place] at Bedside Support Person: - Recovery Exam Fundal Tone: Firm Fundal Level: At Umbilicus Fundal Placement: Midline Lochia Amount: Small, Moderate Lochia Color: Rubra/Red Perineum Description: Intact, Minimal Bruising/Swelling Episiotomy/Laceration: None Bladder Status: Voiding Urinary Elimination: Voided - Exam General: Alert, Oriented HEENT: Pupils Equal Neck: Supple Lungs: Clear to Auscultation, Normal Respiratory Effort Cardiovascular: Regular Rate, Regular Rhythm GI/Abdominal Exam: Normal Bowel Sounds, Soft, Non-Tender, No Organomegaly, No Distention, No Abnormal Bruit, No Mass, Pelvis Stable Extremities: Normal Inspection, Normal Range of Motion, Non-Tender, No Pedal Edema, Normal Capillary Refill Skin: Warm, Dry, Intact Neurological: No New Focal Deficit Psy/Mental Status: Alert, Normal Affect, Normal Mood - Problem List Review Problem List Initiated/Reviewed/Updated: Yes - My Orders Last 24 Hours: My Active Orders 06/24/17 08:42 Activity as Tolerated [RC] PER UNIT ROUTINE Vital Signs [RC] Q4HR Benzocaine/Menthol [Dermoplast Pain Relief [place]] See Dose Instructions TOP ASDIRECTED PRN Docusate Sodium [Colace] 100 mg PO BID PRN Ibuprofen [Motrin] 600 mg PO Q6H PRN Lanolin [Lansinoh HPA] See Dose Instructions TOP ASDIRECTED PRN Misoprostol [Cytotec] 600 mcg PO ONETIME PRN Witch Sujey [Tucks] 1 pad TOP ASDIRECTED PRN Assess Lochia [WOMSER] Per Unit Routine Assess Uterine Involution [WOMSER] Per Unit Routine Breast Pump [WOMSER] Per Unit Routine Heat Therapy [OM.PC] PRN Medication Administration Instruction [OM.PC] Routine Perineal Care [OM.PC] Per Unit Routine Sitz Bath [OM.PC] Per Unit Routine 06/25/17 05:11 CBC W/O DIFF,HEMOGRAM [HEME] AM 06/25/17 08:42 Heat Therapy [OM.PC] PRN - Assessment Assessment:: PPD1 from with significant shoulder dystocia. Doing well. Sore. Swelling improving. Blood pressures all good other than one mild range. Afebrile Home tomorrow likely. CBC pending
[2017-06-25] MEDS: Docusate Sodium 100 MG Cap PO PRN ×2 (08:03→20:50)
[2017-06-25] MEDS: Ibuprofen 600 MG Tab PO PRN ×3 (08:03→20:50)
--- NOTE | 2017-06-26 08:50 | PCM.DCSUM1 ---
Discharge Summary - Hospital Course Brief History: Admitted for IOL for postdates. Buchanan bulb, pitocin and arom. Eventually progressed to complete. Chorioamnionitis. Long second stage. Shoulder dystocia. Uncomplicated course. - Discharge Data Discharge Date: 06/26/17 Discharge Disposition: Home, Self-Care 01 Condition: Good - Patient Instructions Diet: Heart Healthy Diet Activity: No Strenuous Activities Driving: May Drive Today Showering/Bathing: May Shower Wound/Incision Care: Keep Operative Site/Wound Site Clean and Dry Notify Provider of: Fever, Increased Pain, Swelling and Redness, Drainage, Nausea and/or Vomiting - Discharge Plan Home Medications: Home Meds Vits #93/Iron Fum/FA [ Formula Tablet] 1 tab PO DAILY 06/22/17 [History] Patient Handouts: Smoking Hazards, Smoking Cessation, Tips for Success, Tobacco Use Disorder Referrals: Alisia Barnes MD [Primary Care Provider] - (4 weeks) - Discharge Summary/Plan Comment DC Time >30 min.: No - General Info Date of Service: 06/26/17 Functional Status: Reports: Pain Controlled - Review of Systems General: Reports: No Symptoms HEENT: Reports: No Symptoms Pulmonary: Reports: No Symptoms Cardiovascular: Reports: No Symptoms Gastrointestinal: Reports: No Symptoms Genitourinary: Reports: No Symptoms Musculoskeletal: Reports: No Symptoms Skin: Reports: No Symptoms Neurological: Reports: No Symptoms Psychiatric: Reports: No Symptoms - Patient Data Vitals - Most Recent: Last Vital Signs Temp 36.4 C 06/26/17 05:36 Pulse 102 H 06/26/17 05:36 Resp 16 06/26/17 05:36 BP 131/76 06/26/17 05:36 Pulse Ox 97 06/26/17 05:36 Weight - Most Recent: 92.805 kg I&O - Last 24 hours: Intake & Output 06/25/17 06/26/17 06/26/17 22:59 06:59 14:59 Intake Total 360 Balance 360 Med Orders - Current: Current Medications Benzocaine/Menthol (Dermoplast Pain Relief [place]) 0 gm TOP ASDIRECTED PRN PRN Reason: Perineal Comfort Measure Docusate Sodium (Colace) 100 mg PO BID PRN PRN Reason: Constipation Last Admin: 06/25/17 20:50 Dose: 100 mg Emollient Ointment (Lansinoh Hpa) 0 gm TOP ASDIRECTED PRN PRN Reason: Sore Nipples Ibuprofen (Motrin) 600 mg PO Q6H PRN PRN Reason: Mild pain or fever Last Admin: 06/25/17 20:50 Dose: 600 mg Misoprostol (Cytotec) 600 mcg PO ONETIME PRN PRN Reason: excessive vaginal bleeding Last Admin: 06/24/17 06:52 Dose: 600 mcg Witch Sujey (Tucks) 1 pad TOP ASDIRECTED PRN PRN Reason: Hemorrhoid pain Discontinued Medications Acetaminophen (Tylenol) 650 mg PO Q4H PRN PRN Reason: Pain (Mild 1-3) and fever Last Admin: 06/24/17 04:21 Dose: 650 mg Bupivacaine HCl (Sensorcaine-Mpf 0.25%) 10 ml .ROUTE .[facility]MED ONE Stop: 06/24/17 22:23 Ephedrine Sulfate (Ephedrine Sulfate) 5 mg IVPUSH ASDIRECTED PRN PRN Reason: Hypotension Fentanyl (Sublimaze) 100 mcg EPIDUR Q3H PRN PRN Reason: Pain Last Admin: 06/23/17 16:03 Dose: 100 mcg Fentanyl/Bupivacaine HCl (Fentanyl/Bupivacaine/Ns 2 Mcg-0.125% 100 Ml) 100 ml EPIDUR ASDIRECTED TRACEY Last Admin: 06/24/17 05:20 Dose: 100 ml Gentamicin Sulfate (Gentamicin) Confirm Administered Dose 480 mg .ROUTE .[facility] MED ONE Stop: 06/24/17 04:15 Last Admin: 06/24/17 08:27 Dose: Not Given Lactated Ringer's (Ringers, Lactated) 1,000 mls @ 40 mls/hr IV ASDIRECTED TRACEY Last Admin: 06/24/17 04:31 Dose: 40 mls/hr Oxytocin/Lactated Ringer's (Pitocin In Lr 10 Units/1,000 Ml) 10 unit in 1,000 mls @ 500 mls/hr IV .CONTINUOUS TRACEY Oxytocin/Lactated Ringer's (Pitocin In Lr 10 Units/1,000 Ml) 10 unit in 1,000 mls @ 12 mls/hr IV TITRATE TRACEY; 2 MUNITS/MIN PRN Reason: Protocol Last Admin: 06/23/17 10:07 Dose: 20 munits/min, 120 mls/hr Oxytocin 20 unit/ Lactated (Ringer's) 1,002 mls @ 60.12 mls/hr IV TITRATE TRACEY; 20 MUNITS/MIN PRN Reason: Protocol Last Titration: 06/23/17 23:39 Dose: 28 munits/min, 84.16 mls/hr Gentamicin Sulfate 450 mg/ (Sodium Chloride) 111.25 mls @ 200 mls/hr IV ONETIME ONE Stop: 06/24/17 04:39 Last Admin: 06/24/17 04:54 Dose: 200 mls/hr Ampicillin Sodium 2 gm/ Sodium (Chloride) 100 mls @ 200 mls/hr IV Q6H TRACEY Last Admin: 06/24/17 04:24 Dose: 200 mls/hr Sodium Chloride (Normal Saline) Confirm Administered Dose 100 mls @ as directed .ROUTE .STK-MED ONE Stop: 06/24/17 04:23 Last Admin: 06/24/17 08:27 Dose: Not Given Misoprostol (Cytotec) Confirm Administered Dose 600 mcg .ROUTE .STK-MED ONE Stop: 06/24/17 06:50 Last Admin: 06/24/17 09:09 Dose: Not Given Nalbuphine HCl (Nubain) 10 mg IVPUSH Q2H PRN PRN Reason: Pain (moderate 4-6) Ondansetron HCl (Zofran) 4 mg IVPUSH Q4H PRN PRN Reason: Nausea/Vomiting Ondansetron HCl (Zofran) 4 mg IVPUSH ONETIME PRN PRN Reason: Nausea/Vomiting Sodium Chloride (Saline Flush) 10 ml FLUSH ASDIRECTED PRN PRN Reason: Keep Vein Open Zolpidem Tartrate (Ambien) 5 mg PO BEDTIME PRN PRN Reason: Insomnia - Exam General: Reports: Alert, Oriented HEENT: Reports: Pupils Equal, Pupils Reactive, EOMI, Mucous Membr. Moist/[place] Neck: Reports: Supple Lungs: Reports: Clear to Auscultation, Normal Respiratory Effort Cardiovascular: Reports: Regular Rate, Regular Rhythm GI/Abdominal Exam: Normal Bowel Sounds, Soft, Non-Tender, No Organomegaly, No Distention, No Abnormal Bruit, No Mass Back Exam: Reports: Normal Inspection, Full Range of Motion Extremities: Normal Inspection, Normal Range of Motion, Non-Tender, No Pedal Edema, Normal Capillary Refill Skin: Reports: Warm, Dry, Intact Wound/Incisions: Reports: Healing Well Neurological: Reports: No New Focal Deficit Psy/Mental Status: Reports: Alert, Normal Affect, Normal Mood *Q Meaningful Use (DIS) - VTE *Q VTE Criteria *Q: - Stroke *Q Stroke Criteria *Q: - AMI *Q AMI Criteria *Q:
[2017-06-26] MEDS: Ibuprofen 600 MG Tab PO PRN (09:02)
[2017-06-26] MEDS: Docusate Sodium 100 MG Cap PO PRN (09:05)
[2017-06-26 13:30] VITALS: BP 128/73
== END 2017-06-26 13:55 | disposition home or self-care (01) | DRG 775 ==
LOC: JD.OB 06:38 → OBSVTOIN 06-24 06:38 → JD.OB 06-24 13:00
PROVIDERS: ADMIT Obstetrics & Gynecology; ATTEND Obstetrics & Gynecology
PROC: 3E033VJ Introduction of Other Hormone into Peripheral Vein, Percutaneous Approach (ICD-10-PCS; 2017-06-22)
PROC: 10907ZC Drainage of Amniotic Fluid, Therapeutic from Products of Conception, Via Natural or Artificial Opening (ICD-10-PCS; 2017-06-23)
PROC: 00HU33Z Insertion of Infusion Device into Spinal Canal, Percutaneous Approach (ICD-10-PCS; 2017-06-23)
PROC: 3E0R3CZ (ICD-10-PCS; 2017-06-23)
PROC: 10E0XZZ Delivery of Products of Conception, External Approach (ICD-10-PCS; principal; 2017-06-24)
DX: O14.94 Unspecified pre-eclampsia, complicating childbirth (principal); O41.1230 Chorioamnionitis, third trimester, not applicable or unspecified; O48.0 Post-term pregnancy; O66.0 Obstructed labor due to shoulder dystocia; O77.0 Labor and delivery complicated by meconium in amniotic fluid; O63.1 Prolonged second stage (of labor); Z3A.40 40 weeks gestation of pregnancy; Z37.0 Single live birth; Z88.8 Allergy status to other drugs, medicaments and biological substances; Z87.891 Personal history of nicotine dependence
CPT/HCPCS: 36415; 81003; 82565; 82803; 84450; 84460; 85025; 85027; 86850; 86900; 86901; A9270-GY; J0290; J1580; J2590; J3010; J7030; J7120

== ENCOUNTER 2021-04-03 20:42 | Emergency (ER) | payer BC, OTHER ==
[2021-04-03 20:56] VITALS: BP 157/136; PULSE 74
[2021-04-03] MEDS ORDERED: Lidocaine 1% with EPINEPHrine 1:100,000 10 ML MDV INJECT ONE (21:12)
[2021-04-03] MEDS ORDERED: Lidocaine 1% 50 ML MDV ONE (21:13)
--- NOTE | 2021-04-03 21:16 | EDM.PDOC ---
ED HPI GENERAL MEDICAL PROBLEM - General Chief Complaint: Laceration Stated Complaint: FINGER LACERATIONS Time Seen by Provider: 04/03/21 20:53 Source of Information: Reports: Patient, RN Notes Reviewed History Limitations: Reports: No Limitations - History of Present Illness INITIAL COMMENTS - FREE TEXT/NARRATIVE: Patient is a 30-year-old female who presents to the ER for her multiple finger lacerations. She was moving a table in her house, when she ended up cutting her left index finger, and left middle finger on the latch underneath the table. There is roughly a 2 cm V-shaped laceration to the patient's left index finger, along the aspect of the PIP joint, on the posterior portion of the finger, there is a small 5 mm laceration to the posterior surface of the PIP joint of the third finger on the left hand. Bleeding is controlled at this time. Patient states she is up-to-date on her tetanus vaccine. She also states that she is not had any fevers or chills, cough or shortness of breath, nausea/vomiting/diarrhea. 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 ED EXAM, SKIN/RASH Exam: See Below Exam Limited By: No Limitations General Appearance: Alert, WD/WN, No Apparent Distress Respiratory/Chest: No Respiratory Distress, Lungs Clear, Normal Breath Sounds, No Accessory Muscle Use, Chest Non-Tender Cardiovascular: Normal Peripheral Pulses, Regular Rate, Rhythm, No Edema Peripheral Pulses: 2+: Radial (L), Radial (R) Extremities: Normal Range of Motion, Normal Capillary Refill Neurological: Alert, Oriented, Normal Cognition, No Motor/Sensory Deficits Psychiatric: Normal Affect, Normal Mood Skin: Warm, Dry, Normal Color, No Rash, Wound/Incision (2 cm V-shaped laceration to the patient's left posterior index finger over the PIP joint, small 5 mm laceration to the posterior aspect of the third digit PIP joint.) ED SKIN PROCEDURES - Laceration/Wound Repair Left Middle Posterior Digit - 2nd (Index) Appearance: Superficial, Clean Distal NVT: Neuro & Vascular Intact, No Tendon Injury Anesthetic Type: Local Local Anesthesia - Lidocaine (Xylocaine): 1% with EPI Local Anesthetic Volume: 3cc Skin Prep: Chlorhexidine (Hibiciens), Saline Exploration/Debridement/Repair: Wound Explored, In a Bloodless Field, Explored to Base, No Foreign Material Found Closed with: Sutures Lac/Wound length In cm: 2 Suture Size: 4-0 # of Sutures: 5 Suture Type: Prolene, Interrupted, Simple Sterile Dressing Applied: Nurse Tetanus Status Addressed: Yes Complications: No Course - Vital Signs Last Recorded V/S: Last Vital Signs Temp 98.0 F 04/03/21 20:53 Pulse 74 04/03/21 20:53 Resp 20 04/03/21 20:53 BP 157/136 H 04/03/21 20:53 Pulse Ox 98 04/03/21 20:53 - Orders/Labs/Meds Meds: Medications Discontinued Medications Generic Name Dose Route Start Last Admin Trade Name Eddie PRN Reason Stop Dose Admin Lidocaine HCl Confirm 04/03/21 21:13 04/03/21 21:39 Lidocaine 1% 50 Ml Mdv Administered 04/03/21 21:14 50 ml Dose Administration 50 ml .ROUTE .STK-MED ONE Lidocaine/Epinephrine 10 ml 04/03/21 21:12 Lidocaine 1% With Epinephrine 1:100,000 10 Ml Mdv INJECT 04/03/21 21:13 ONETIME ONE Departure - Departure Time of Disposition: 21:15 Disposition: Home, Self-Care 01 Condition: Good Clinical Impression: Laceration of finger of left hand Qualifiers: Encounter type: initial encounter Finger: middle finger Damage to nail status: without damage Foreign body presence: without foreign body Qualified Code(s): S61.213A - Laceration without foreign body of left middle finger without damage to nail, initial encounter - Discharge Information *PRESCRIPTION DRUG MONITORING PROGRAM REVIEWED*: No *COPY OF PRESCRIPTION DRUG MONITORING REPORT IN PATIENT PATRICE: No Instructions: Sutures, [place], or Adhesive Wound Closure, [id number] Referrals: Deedee Melo NP [Primary Care Provider] - Forms: ED Department Discharge Additional Instructions: You have been evaluated in the ED for your laceration. Sutures will need to stay in for 10-14 days. You may return to the ED or any clinic for removal. Please keep this area clean and dry, you may cleanse with regular soap and water. No vigorous scrubbing. Please try to avoid submerging the affected area in water for prolonged periods of time until the sutures are removed. Watch out for signs of infection like increased redness, swelling, pain at the laceration site, or if you should develop any fevers or chills. Please return to ED if your symptoms change or worsen. Sepsis Event Note (ED) - Evaluation Sepsis Screening Result: No Definite Risk - Focused Exam Vital Signs: Vital Signs Temp Pulse Resp BP Pulse Ox 04/03/21 20:53 98.0 F 74 20 157/136 H 98
== END 2021-04-03 22:02 | disposition home or self-care (01) ==
LOC: JD.ED 20:42
DX: S61.211A Laceration without foreign body of left index finger without damage to nail, initial encounter (principal); S61.213A Laceration without foreign body of left middle finger without damage to nail, initial encounter; Z88.1 Allergy status to other antibiotic agents; W26.8XXA Contact with other sharp object(s), not elsewhere classified, initial encounter
CPT/HCPCS: 12001; 99282; J2001

== ENCOUNTER 2023-01-13 05:07 | Inpatient (IN) | payer BC ==
[~2023-01-13 05:07] MED LIST: Lactated Ringers 1,000 ML IV SCH; Oxytocin/Lactated Ringers 10 UNIT/1,000 ML BAG IV SCH
[2023-01-13] MEDS ORDERED: Citric Acid/Sodium Citrate Solution 30 ML Cup PO ONE ×2 (05:44→07:00)
[2023-01-13] MEDS ORDERED: Metoclopramide 10 MG/2 ML SDV IVPUSH ONE ×2 (05:45→07:00)
[2023-01-13] MEDS ORDERED: Lactated Ringers 1,000 ML IV SCH (05:45)
[2023-01-13] MEDS ORDERED: Oxytocin 10 Units/1 ML SDV ONE (06:59)
[2023-01-13] MEDS ORDERED: Ondansetron 4 MG/2 ML SDV ONE (06:59)
[2023-01-13] MEDS ORDERED: Ketorolac 30 MG/ML SDV ONE (06:59)
[2023-01-13] MEDS ORDERED: ceFAZolin 2 GM Vial ONE (06:59)
[2023-01-13] MEDS ORDERED: Morphine PF 1 MG/ML Amp ONE (06:59)
[2023-01-13] MEDS ORDERED: ceFAZolin 2 GM in Sodium Chloride 0.9% 50 ML IV ONE (07:00)
[2023-01-13] MEDS ORDERED: Phenylephrine 1% 10 MG/ML SDV ONE (07:00)
[2023-01-13] MEDS ORDERED: Lactated Ringers 1,000 ML ONE (08:22)
[2023-01-13] MEDS ORDERED: Meperidine 50 MG/ML Vial IVPUSH PRN (08:37)
[2023-01-13] MEDS ORDERED: Ondansetron 4 MG/2 ML SDV IVPUSH PRN (08:37)
[2023-01-13] MEDS ORDERED: diphenhydrAMINE 50 MG/ML SDV IVPUSH PRN ×2 (08:37→09:38)
[2023-01-13] MEDS ORDERED: fentaNYL 100 MCG/2 ML SDV IVPUSH PRN (08:37)
[2023-01-13] MEDS ORDERED: Acetaminophen/oxyCODONE 325-5 MG Tab PO PRN ×2 (09:38)
[2023-01-13] MEDS ORDERED: Dextrose 5%-Lactated Ringers 1,000 ML IV SCH (09:38)
[2023-01-13] MEDS ORDERED: Docusate Sodium 100 MG Cap PO PRN (09:38)
[2023-01-13] MEDS ORDERED: ePHEDrine 50 MG/ML SDV IVPUSH PRN (09:38)
[2023-01-13] MEDS: busPIRone 5 MG Tab PO SCH ×2 (10:34→22:31)
[2023-01-13] MEDS: Ketorolac 30 MG/ML SDV IVPUSH SCH ×2 (16:08→22:04)
[2023-01-13] MEDS ORDERED: QUEtiapine 100 MG Tab PO SCH (18:00)
[2023-01-14] MEDS: Ketorolac 30 MG/ML SDV IVPUSH SCH (04:01)
[2023-01-14] MEDS ORDERED: Ibuprofen 600 MG Tab PO PRN (09:00)
[2023-01-14] MEDS: busPIRone 5 MG Tab PO SCH (09:46)
[2023-01-14 13:56] VITALS: BP 134/85; PULSE 102
== END 2023-01-14 14:07 | disposition home or self-care (01) | DRG 540 ==
LOC: JD.OB 05:10
PROVIDERS: ADMIT Obstetrics & Gynecology; ATTEND Obstetrics & Gynecology
PROC: 10D00Z1 Extraction of Products of Conception, Low, Open Approach (ICD-10-PCS; principal; 2023-01-13)
DX: O66.0 Obstructed labor due to shoulder dystocia (principal); O14.04 Mild to moderate pre-eclampsia, complicating childbirth; O99.214 Obesity complicating childbirth; F41.9 Anxiety disorder, unspecified; O99.344 Other mental disorders complicating childbirth; F32.A Depression, unspecified; Z37.0 Single live birth; Z90.710 Acquired absence of both cervix and uterus; Z98.890 Other specified postprocedural states; Z87.891 Personal history of nicotine dependence; Z88.8 Allergy status to other drugs, medicaments and biological substances; Z3A.39 39 weeks gestation of pregnancy
CPT/HCPCS: 36415; 51702; 59025; 85025; 85027; 86592; 86850; 86900; 86901; 94762; A9270-GY; J0690; J1885; J2274; J2370; J2405; J2590; J7120; J7121